=== PATIENT | male | born 1990 | race Caucasian/White ===

== ENCOUNTER 2019-03-11 15:50 | Emergency (ER) | payer OTHER ==
[~2019-03-11] VITALS: Ht 172.7 cm; Wt 112.9 kg
[2019-03-11 18:23] VITALS: BP 154/98
== END 2019-03-11 18:15 | disposition home or self-care (01) ==
LOC: M ED 15:50
DX: Z04.1 Encounter for examination and observation following transport accident (principal); F17.210 Nicotine dependence, cigarettes, uncomplicated